=== PATIENT | male | born 1955 | race African-American/Black ===

== ENCOUNTER 2017-09-04 18:34 | Emergency (ER) | payer OTHER ==
[~2017-09-04] VITALS: Ht 175.3 cm; Wt 95.7 kg
--- NOTE | ~2017-09-04 | EKG ---
[address] [place] [address] ELECTROCARDIOGRAM REPORT Name: SHELLY DUARTE Room #: DEP Birgit#: [id number] Admission: 09/04/17 Attend Phys: Discharge: 09/04/17 Date of : 55 Report #: [id number] THIS REPORT FOR: //name// [facility] ED Test Date: 2017-09-04 Test Time: 18:39:24 Pat Name: SHELLY DUARTE Department: Room: Gender: Charge Hand: [facility] : 1955 Requested By: Rula Castillo Order Number: [id number] MD: Elias Keller Measurements Intervals [place] Rate: 84 P: 70 [place]: 148 QRS: 3 QRSD: 98 T: 51 QT: 375 QTc: 444 Interpretive Statements Sinus rhythm Probable left atrial enlargement Inferior infarct, old Minimal ST elevation, anterior leads No previous ECG available for comparison Electronically Signed On 09-05-2017 8:17:13 WEB EDITOR by Elias Keller [email or web address] <ELECTRONICALLY SIGNED> By: Elias Keller MD 09/05/17 0817 1839 1839 Elias Keller MD /QUINN
[~2017-09-04 18:34] MED LIST: BIAXIN 250MG T250 M1; CIPROFLOXACIN500 M1 PO; FLAGYL500 MG PO; NORCO 5-325 TA1 EACH PO; PERCOCET 5-3251 EACH PO; PHENERGAN 25 MG25 M1 PO; PROTONIX40 MG PO; QUINAPRIL 20 MG20 MG PO; UNKNOWN BP MED
[2017-09-04] MEDS ORDERED: NORCO 5-325 TA1 EACH PO (18:54)
[2017-09-04 19:29] LABS: HEMOGLOBIN 16.5 gm/dL (14.0-18.0); MCH 30.2 pg (26.0-34.0); MCHC 34.4 g/dL (28.0-37.0); MCV 87.9 fL (80.0-100.0); PLATELET COUNT 237 thou/uL (150-400); RBC 5.46 mil/uL (4.50-6.00); RDW 13.5 % (10.5-14.5); WBC 5.2 thou/uL (4.0-11.0)
[2017-09-04 19:36] LABS: ANION GAP 5 mmol/L (7-16); BUN 11 mg/dL (7-18); CALCIUM 9.8 mg/dL (8.5-10.1); CHLORIDE 104 mmol/L (98-107); CO2 31 mmol/L (21-32); GLUCOSE 95 mg/dL (74-106); POTASSIUM 3.9 mmol/L (3.5-5.1); SODIUM 140 mmol/L (136-145)
[2017-09-04 19:45] LABS: TROPONIN-I < 0.04 ng/mL (<0.06)
[2017-09-04 20:12] LABS: ABSOLUTE NEUTROPHILS 2.2 thou/uL (1.4-8.2); PLATELET ESTIMATE NORMAL
[2017-09-04 20:18] VITALS: BP 132/87
== END 2017-09-04 20:19 | disposition home or self-care (01) ==
LOC: ER 18:34
PROVIDERS: Emergency Medicine
DX: M25.512 Pain in left shoulder (principal); M75.102 Unspecified rotator cuff tear or rupture of left shoulder, not specified as traumatic; I10 Essential (primary) hypertension; F17.210 Nicotine dependence, cigarettes, uncomplicated

== ENCOUNTER → 2017-09-20 | Outpatient (CLI) | payer OTHER | LOC: MRI 11:49 | DX: M47.892 Other spondylosis, cervical region (principal); M79.602 Pain in left arm ==

== ENCOUNTER 2018-07-28 18:28 | Emergency (ER) | payer OTHER ==
[~2018-07-28] VITALS: Ht 175.3 cm; Wt 99.8 kg
[2018-07-28] MEDS ORDERED: NORVASC5 MG PO (19:15)
[2018-07-28] MEDS ORDERED: NEURONTIN 300300 M1 PO (19:17)
[2018-07-28] MEDS ORDERED: LISINOPRIL20 MG PO (19:18)
[2018-07-28] MEDS ORDERED: NORCO 5-325 TA1 EACH PO (20:08)
[2018-07-28] MEDS ORDERED: SENNA8.6 MG PO (20:08)
[2018-07-28 20:50] VITALS: BP 168/105
== END 2018-07-28 20:55 | disposition home or self-care (01) ==
LOC: ER 18:28
DX: S92.221A Displaced fracture of lateral cuneiform of right foot, initial encounter for closed fracture (principal); F17.210 Nicotine dependence, cigarettes, uncomplicated; I10 Essential (primary) hypertension; W01.0XXA Fall on same level from slipping, tripping and stumbling without subsequent striking against object, initial encounter; Y92.009 Unspecified place in unspecified non-institutional (private) residence as the place of occurrence of the external cause; Y93.01 Activity, walking, marching and hiking; Y99.8 Other external cause status

== ENCOUNTER 2020-05-07 23:08 | Emergency (ER) | payer OTHER ==
[~2020-05-07] VITALS: Ht 175.3 cm; Wt 97.5 kg
[~2020-05-07 23:08] MED LIST changes: +LISINOPRIL20 MG PO; +NEURONTIN 300300 M1 PO; +NORVASC5 MG PO; +SENNA8.6 MG PO
[2020-05-07] MEDS ORDERED: VITAMIN D250 MCG PO (23:39)
[2020-05-07 23:59] LABS: ABSOLUTE NEUTROPHILS 4.1 thou/uL (1.4-8.2); BASOPHILS 0.5 % (0.0-2.0); EOSINOPHILS 0.5 % (0.0-3.0); HEMATOCRIT 49.4 % (42.0-52.0); HEMOGLOBIN 16.6 gm/dL (14.0-18.0); LYMPHOCYTES 19.5 % (24.0-44.0); MCH 30.2 pg (26.0-34.0); MCHC 33.7 g/dL (28.0-37.0); MCV 89.6 fL (80.0-100.0); PLATELET COUNT 230 thou/uL (150-400); POLYS 70.5 % (36.0-66.0); RBC 5.52 mil/uL (4.50-6.00); WBC 5.9 thou/uL (4.0-11.0)
[2020-05-08 00:09] LABS: ANION GAP 13 mmol/L (7-16); BUN 12 mg/dL (7-18); CALCIUM 9.3 mg/dL (8.5-10.1); CHLORIDE 104 mmol/L (98-107); CO2 24 mmol/L (21-32); GLUCOSE 137 mg/dL (74-106); POTASSIUM 3.6 mmol/L (3.5-5.1); SODIUM 141 mmol/L (136-145)
[2020-05-08 00:17] LABS: DIRECT BILIRUBIN 0.2 mg/dL (<0.1-0.2); LIPASE 112 U/L (73-393); SGOT 16 U/L (15-37); SGPT 26 U/L (30-65); TOTAL BILIRUBIN 0.8 mg/dL (0.2-1.0); TOTAL PROTEIN 7.9 g/dL (6.4-8.2); TROPONIN-I <0.06 ng/mL (<0.06)
[2020-05-08 00:57] LABS: URINE BILIRUBIN 1+ (Negative); URINE BLOOD TRACE (Negative); URINE CLARITY CLEAR; URINE COLOR YELLOW; URINE GLUCOSE-RANDOM* NEGATIVE (Negative); URINE KETONES 1+ (Negative); URINE LEUKOCYTES-REFLEX NEGATIVE (Negative); URINE NITRITE-REFLEX NEGATIVE (Negative); URINE PROTEIN (DIPSTICK) TRACE (Negative); URINE UROBILINOGEN 0.2 E.U./dl (0.2-1.0)
[2020-05-08] MEDS ORDERED: BENTYL 20 MG TA20 M1 PO (03:09)
[2020-05-08 03:23] VITALS: BP 116/93
--- NOTE | 2020-05-09 16:37 | EKG ---
[facility] [place] [address] ELECTROCARDIOGRAM REPORT Name: SHELLY DUARTE SANDRA Room #: DEP [facility].#: [id number] Admission: 05/07/20 Attend Phys: Discharge: 05/08/20 Date of : 55 Report #: [id number] THIS REPORT FOR: cc: Dimitry Ureña MD, Randy MD Lundgren,Krish Jha MD [facility] ~ THIS REPORT FOR: //name// [facility] ED Test Date: 2020-05-07 Test Time: 23:32:56 Pat Name: SHELLY DUARTE Department: Room: Gender: [employer] Operator: [facility] : 1955 Requested By: Sandrita Burgess Order Number: [id number] MD: Krish Mendoza Measurements Intervals [place] Rate: 57 P: 44 [place]: 135 QRS: 34 QRSD: 101 T: 56 QT: 437 QTc: 426 Interpretive Statements Sinus rhythm Probable anteroseptal infarct, old Compared to ECG 09/04/2017 18:39:24 No significant change was found Electronically Signed On 05-09-2020 16:37:14 CDT by Krish Mendoza [email or web address] <ELECTRONICALLY SIGNED> By: Krish Mendoza MD, FACC 05/09/20 1637 2332 2332 Krish Mendoza MD, [facility] /EPI
== END 2020-05-08 03:21 | disposition home or self-care (01) ==
LOC: ER 23:08
PROVIDERS: Emergency Medicine
DX: R10.11 Right upper quadrant pain (principal); R10.31 Right lower quadrant pain; I10 Essential (primary) hypertension; F17.210 Nicotine dependence, cigarettes, uncomplicated; Z79.899 Other long term (current) drug therapy